=== PATIENT | male | born 1955 | race Caucasian/White ===

== ENCOUNTER 2025-05-14 17:34 | Emergency (ER) | payer MEDICARE, BC, SELFPAY ==
[2025-05-14 17:49] VITALS: BP 162/72; PULSE 79; RESP 18; TEMP 37.6; O2SAT 97
--- NOTE | 2025-05-14 17:59 | ED.URI ---
HPI - URI/Sore Throat General Chief Complaint: Upper Respiratory Infection Stated Complaint: sinus Time Seen by Provider: 05/14/25 18:01 Source: patient and RN notes reviewed Mode of arrival: ambulatory Limitations: no limitations History of Present Illness HPI Narrative: 70-year-old male presents with concern for 3 week history of sinus congestion and pressure. Reports over the last 3 [place] he has had worsening rhinorrhea, sneezing and sinus pressure. He is using hypertropia, Flonase and Zyrtec without relief. Denies fever, body aches, chills, sweats. MD elicited complaint: cough, rhinorrhea and nasal congestion Related Data Home Medications ?Medication ?Instructions ?Recorded ?Confirmed ?Last Taken ?Type rosuvastatin 10 mg tablet mg 05/14/25 Unknown History Allergies Allergy/AdvReac Type Severity Reaction Status Date / Time iodine Allergy Swelling Verified 05/14/25 17:53 Review of Systems Review of Systems: CONSTITUTIONAL: Denies malaise, chills, sweats, or fever. EYES: Denies visual changes, redness, or discharge. ENT: Reports rhinorrhea, congestion, sinus pain, otalgia and sneezing CARDIOVASCULAR: Denies chest pain, palpitations, or edema. RESPIRATORY: Reports cough. Denies dyspnea. GASTROINTESTINAL: Denies abdominal pain, nausea, vomiting, diarrhea SKIN: Denies rash or itching. MUSCULOSKELETAL: Denies myalgia. NEUROLOGIC: Denies headache. All systems reviewed & are unremarkable except as noted in HPI and below PMFSH Comments At time of signature, agree with nursing past medical, surgical, social and family history. There is no relevant family history pertinent to the presenting complaint Exam Narrative: GENERAL: Well-appearing, well-nourished, and in no acute distress. HEAD: Normocephalic EYES: PERRLA, conjunctivae clear ENT: Nares clear, turbinates edematous and erythematous. Mucous membranes moist. TM pearly thomas with dull light reflex bilaterally; no tragal tenderness. Oropharynx not erythematous without lesions. Tonsils not enlarged and without exudate, no drooling, no hoarseness, no trismus, uvula midline. NECK: Supple. No lymphadenopathy CHEST: Clear to auscultation, breath sounds equal. No wheezing, rhonchi, rales, or stridor. No respiratory distress, speaks in full sentences. Cough HEART: Regular rate and rhythm. No murmur heard. SKIN: Warm, dry, no rash. NEURO: Alert and oriented x3. PSYCH: Normal mood and affect Course Course Emergency Course: Patient is aware of diagnosis, understands and agrees to treatment plan. Anticipatory guidance given. Patient agrees to follow-up as directed and is aware of reasons to seek care at the emergency department. Portions of this record may have been created with voice recognition software Level of Care: [facility] Visit Vital Signs Vital signs: Vital Signs Temperature 99.6 F 05/14/25 17:49 Pulse Rate 79 05/14/25 17:49 Respiratory Rate 18 05/14/25 17:49 Blood Pressure 162/72 H 05/14/25 17:49 Pulse Oximetry 97 05/14/25 17:49 Oxygen Delivery Room Air 05/14/25 17:49 Temperature 99.6 F 05/14/25 17:49 Pulse Rate 79 05/14/25 17:49 Respiratory Rate 18 05/14/25 17:49 Blood Pressure 162/72 H 05/14/25 17:49 Pulse Oximetry 97 05/14/25 17:49 Oxygen Delivery Room Air 05/14/25 17:49 MDM Differential Diagnosis Differential Diagnosis: I evaluated this patient in the [facility]. History is obtained from patient who is an independent historian and physical exam was performed.? Available medical records were reviewed. ? Exam findings and relevant testing show no acute concerns or changes; patient is non-toxic appearing and is in no distress. ? Differential diagnosis considered: Rosas virus, strep pharyngitis, allergic rhinitis, upper respiratory tract infection, sinusitis, rhinosinusitis, nasopharyngitis. viral pharyngitis, otitis media, otitis externa, pneumonia, bronchitis, viral cough syndrome, viral syndrome, and influenza. Differential diagnosis and treatment plan were discussed with the patient. Patient agrees with discussion and after shared medical decision making agrees with plan of care. All questions were answered to the patient's satisfaction. Patient is appropriate for outpatient treatment and follow-up. Discharge Plan Discharge Clinical Impression: Sinobronchitis Patient Disposition: Home Condition: Stable Instructions: Antibiotic Form, Sinusitis (ED) Additional Instructions: Take medication as prescribed Recommend antihistamine such as Benadryl at night time (you can also take Benadryl every 6 hours if needed) and Zyrtec or Tosha during the day Continue Use your inhaler as needed for cough, wheezing, shortness of breath or chest tightness. Also, recommend symptomatic treatment includes: rest, fluids, and increase humidity of the air at home. Recommend Acetaminophen as directed on the bottle to reduce fever, pain, headache. Avoid smoking/second-hand smoke. Please schedule a follow-up visit with your personal physician for further evaluation and treatment within 3-5days. Including recheck and discussion of your blood pressure. If your symptoms persist, change or worsen significantly before you can contact your personal physician then please, without delay, go to the emergency department for further evaluation. Patient Language: Sen[place]alese Prescriptions: New azithromycin [Zithromax Z-[id number]] 250 mg tablet See Rx Instructions .ROUTE .COMPLEX Qty: 6 0RF Rx Instructions: take 500 mg today (day 1), then 250 mg for 4 days (days 2-5) prednisone 20 mg tablet 40 mg PO DAILY 5 Days Qty: 10 0RF No Action rosuvastatin 10 mg tablet Follow-up/Referrals: UNKNOWN,DOCTOR [Primary Care Provider] Time of Disposition: 18:10
--- OUTSIDE RECORDS SUMMARY | 2025-05-14 21:13 | XMS_ITS | Data Portability ---
Author Organization [place] - [facility] [employer] [facility] Address [address] [place] [address] Care Team Providers Care Visual Merchandiser Name Role Phone NOAH SILVA Primary Care Provider [phone] NOAH SILVA Referring Provider [phone] ADELE JUAREZ Square Cutter [phone] PRATIMA HUMPHREY Event Promotions Coordinator Assessment Encounter Date Assessment Date Assessment LastModified by Organization Details LastModified Time 05/21/2024 05/21/2024 Time Spent: Alcohol screening 1 minutes, and counseling (if performed): minutes. Depression screening 1 minutes, and counseling (if performed): minutes. Falls: Number of falls in the past year: 0 MCW Other issues as below PLAN The cough just may continue to be postinflammatory after his recent upper respiratory tract infection and with some mild airway irritation from his history of mild/intermittent asthma but I will have a chest x-ray done, coccidiomycosis antibodies are ordered as well. Will contact with results. It has been years since he had PFTs. I am ordering those. 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 Referral has been made. I did not put him on a daily controller at this time. He is happy with this approach Urology referral placed over the weekend. I advised him if he does not hear from them by the end of the day to contact them. He will do so. Information was given once again. Again examination not performed today as he will be seeing urology for formal examination and to spare him multiple rectal examinations Continue on rosuvastatin No need for antihypertensive treatment Advance care planning as below Colonoscopy in another 7 years Continue low-sodium diet. And a low carbohydrate diet as well With regards to vaccines encouraged him to get caught up with Prevnar 20. No need for RSV as of yet but consider depending on what happens with pulmonary evaluation If he needs a refill of ipratropium nasal spray he will let me know. He will return to see me in 1 year, sooner should new issues arise All questions answered form today. Time spent with patient in direct consultation and evaluation apart from the MCW: 20 minutes Time spent reviewing previous records in the EMR/preparing for today's appointment, ordering studies, referrals, and documenting in the EMR apart from the MCW: 25 minutes Total time spent on patient care apart from the MCW: 45 minutes lauren Not available 05/21/2024 09:43:35 Plan of Treatment Reminders Order Date Submit Date Provider Last Modified By Organization Details Last Modified Time Details Appointments *Medic are Annual Zak ss 30 2024 07:15A M Noah moy M.D. Not available Not available Not available *Medhat Lee t 30 2025 03:00P M RANDY PAYAN R, P.A. Not available Not available Not available Lab coccid ioides igg+ig m Ab, serum 2023 024 [place] [facility], [address] [place], [place], [address], 05/22/2024 16:10:35 Referral urolog ist referr al 2023 024 [email or web address] [facility], [address], [place], [address], 06/19/2024 08:40:05 pulmon ologis t referr al 2023 024 rudy [facility], [address], [place], [address], 05/21/2024 16:46:53 Procedures None record ed. Surgeries None record ed. Imaging XR, chest, 2 view 2023 024 [facility], [address], [place], [address], 05/22/2024 04:34:34 PFT, comple te 2023 024 [email or web address] [facility] ([facility]), [address], [place], [address], 06/07/2024 17:08:43 Medication Orders triamc inolon e aceton mode 40 mg/mL suspen christos for inject ion 2024 025 [email or web address] Not available 05/14/2025 10:42:02 ipratr opium bromid e 42 mcg (0.06 %) nasal spray 2024 025 [facility] [address] [place], [address], 08/19/2024 11:57:29 amoxic illin 875 mg-pot assium clavul anate 125 mg tablet 2024 025 [email or web address] [facility] [address] [place], [address], 05/14/2025 10:41:54 omari ukast 10 mg tablet 2023 024 [facility] [address] [place], [address], 05/31/2024 10:56:19 rosuva statin 10 mg tablet 2023 024 [facility] [address] [place], [address], 05/21/2024 09:36:02 albute rol sulfat e HFA 90 mcg/ac tuatio n aeroso l inhale r 2023 024 [facility] [address] [place], [address], 05/21/2024 09:36:02 Patient TargetsNo targets recorded. Patient Instructions Encounter Date Encounter Id Patient Instructions Last Modified By Organization Details Last Modified Time 05/21/2024 [id number] chronic cough: c are instructions [email or web address] Not available 05/21/2024 09:35:53 multi-dimensiona l health assessment questionnaire* [email or web address] Not available 05/21/2024 10:35:50 advance directiv es: care instructions [email or web address] Not available 05/21/2024 09:35:53 advance directiv e education [email or web address] Not available 05/21/2024 09:35:53 hearing loss: ca re instructions [email or web address] Not available 05/21/2024 09:35:53 heart-healthy di et: care instructions [email or web address] Not available 05/21/2024 09:35:53 dash diet: care instructions [email or web address] Not available 05/21/2024 09:35:53 preventing falls : care instructions [email or web address] Not available 05/21/2024 09:35:53 Personalized Hea lth Plan and Screening Recommendations Advance Directives - Do you have one? Yes Advance Directives - Do we have your advance directive on file in your health record? No, please bring in a copy at your earliest convenience Primary Prevention/Interven tion (prevents or decreases the chance of common diseases from occurring) Tobacco/Nicotine Risk: Non-Smoker Alcohol Misuse Screening: Low risk Weight: Overweight try to lose 5% of your body weight Physical activity: Maintain appropriate physical activity Nutrition: Good Fall Risk (screened today): Low risk Vaccines Influenza: Your next one in the fall of next year Pneumococcal: Recommended Shingles: Series completed COVID-19: Series and booster completed Respiratory Syncytial Virus (RSV): Not indicated Tetanus: Not indicated Hepatitis B: Not indicated Secondary Prevention/Interven tion (detects treatable diseases before they may cause symptoms, disability, or ) Prostate Cancer Screening: Your next PSA in: 1 year Osteoporosis Screening: not indicated Colon Cancer Screening: Colonoscopy Due: Per GI 2030 Eye Disease Screening: Per your eye care provider Hearing Screening: No exam necessary Depression Screening: Low risk Cognitive Screening: Normal Stay mentally and physically active Diabetes Screening: Not indicated Cardiovascular Disease (CVD) Screening: labs - Not indicated Aspirin Recommendations: you are not at increased risk Abdominal Aortic Aneurysm (AAA) Screening: Not indicated Lung Cancer Screening: Not indicated Hepatitis/Sexually Transmitted Infection (STI)/Human Immunodeficiency Virus (HIV) Screenings: You are not at increased risk, testing is not indicated today Tertiary Prevention/Interven tion (identifies your current known diseases and attempts to prevent complications of those diseases) Complications of many of these diseases can be minimized through the primary prevention/interven tions listed above but some may require medication addition/change or referrals and will be addressed today or at a follow-up appointment Pain Control Status: no pain or pain under adequate control Pain Medication Use and Risk for Opioid Misuse: You do not use addictive opioid medications, and therefore are not at risk Pain Management Plan: No interventions or changes required, alternative therapies have been assessed and documented in your chart lauren Not available 05/21/2024 09:44:12 05/31/2024 [id number] chronic cough: c are instructions Not available 05/31/2024 10:56:13 08/19/2024 [id number] seasonal allergi es: care instructions Not available 08/19/2024 11:56:54 allergies: care instructions Not available 08/19/2024 11:56:53 09/02/2024 [id number] seasonal allergi es: care instructions Not available 09/02/2024 11:40:18 Reason for Referral Event Promotions Coordinator Referral for M ild intermittent asthma Referring Physician: Noah Silva, Internal Medicine, Encounter Date: 05/21/2024 Urologist Referral for Prost ate specific antigen above reference range Referring Physician: Noah Silva, Internal Medicine, Encounter Date: 05/21/2024 Results Created Date Observation Date Name Description Value Unit Range Abnormal Flag Note LastModifiedBy Organization Detail LastModifiedTime 05/09/20 24 05/10/2024 COMP. METAB OLIC PANEL (14) glucose 85 mg/dL 70-99 normal Not Available [facility] ([facility]) [address] [facility], [place], [address], 05/10/2024 09:13:57 05/09/20 24 05/10/2024 COMP. METAB OLIC PANEL (14) BUN 18 mg/dL 8-27 normal Not Available [facility] ([facility]) [address] [facility], [place], [address], 05/10/2024 09:13:57 05/09/20 24 05/10/2024 COMP. METAB OLIC PANEL (14) creatinine 1.16 mg/dL 0.76-1 .27 normal Not Available [facility] ([facility]) [address] [place] [place], [address], 05/10/2024 09:13:57 05/09/20 24 05/10/2024 COMP. METAB OLIC PANEL (14) eGFR 68 mL/mi n/1.7 3 >59 normal Not Available [facility] ([facility]) [address] [facility], [place], [address], 05/10/2024 09:13:57 05/09/20 24 05/10/2024 COMP. METAB OLIC PANEL (14) BUN/creatini ne ratio 16 10-24 normal Not Available [facility] ([facility]) [address] [facility], [place], [address], 05/10/2024 09:13:57 05/09/20 24 05/10/2024 COMP. METAB OLIC PANEL (14) sodium 142 mmol/ L 134-14 4 normal Not Available [facility] ([facility]) [address] [facility] [place], [address], 05/10/2024 09:13:57 05/09/20 24 05/10/2024 COMP. METAB OLIC PANEL (14) potassium 4.5 mmol/ L 3.5-5. 2 normal Not Available [facility] ([facility]) [address] [facility], [place], [address], 05/10/2024 09:13:57 05/09/20 24 05/10/2024 COMP. METAB OLIC PANEL (14) chloride 106 mmol/ L 96-106 normal Not Available [facility] ([facility]) [address] [place], [address], 05/10/2024 09:13:57 05/09/20 24 05/10/2024 COMP. METAB OLIC PANEL (14) carbon dioxide, total 25 mmol/ L 20-29 normal Not Available [facility] ([facility]) [address] [facility] [place], [address], 05/10/2024 09:13:57 05/09/20 24 05/10/2024 COMP. METAB OLIC PANEL (14) calcium 9.3 mg/dL 8.6-10 .2 normal Not Available [facility] ([facility]) [address] [facility] [place], [address], 05/10/2024 09:13:57 05/09/20 24 05/10/2024 COMP. METAB OLIC PANEL (14) protein, total 6.4 g/dL 6.0-8. 5 normal Not Available [facility] ([facility]) [address] [place], [address], 05/10/2024 09:13:57 05/09/20 24 05/10/2024 COMP. METAB OLIC PANEL (14) albumin 4.2 g/dL 3.9-4. 9 normal Not Available [facility] ([facility]) [address] [place] [place], [address], 05/10/2024 09:13:57 05/09/20 24 05/10/2024 COMP. METAB OLIC PANEL (14) globulin, total 2.2 g/dL 1.5-4. 5 Not Available [facility] ([facility]) [address] [place], [address], 05/10/2024 09:13:57 05/09/20 24 05/10/2024 COMP. METAB OLIC PANEL (14) bilirubin, total 0.6 mg/dL 0.0-1. 2 normal Not Available [facility] ([facility]) [address] [facility] [place], [address], 05/10/2024 09:13:57 05/09/20 24 05/10/2024 COMP. METAB OLIC PANEL (14) alkaline phosphatase 71 IU/L 44-121 normal Not Available [facility]) [address] [facility] [place], [address], 05/10/2024 09:13:57 05/09/20 24 05/10/2024 COMP. METAB OLIC PANEL (14) AST (SGOT) 25 IU/L 0-40 normal Not Available [facility] ([facility]) [address] [facility] [facility], [place], [address], 05/10/2024 09:13:57 05/09/20 24 05/10/2024 COMP. METAB OLIC PANEL (14) ALT (SGPT) 25 IU/L 0-44 normal Not Available [facility] ([facility]) [address] [facility] [place], [address], 05/10/2024 09:13:57 05/09/20 24 05/09/2024 CBC, PLATE LET, NO DIFFE RENTI AL WBC 5.5 x10e3 /uL 3.4-10 .8 normal Not Available [facility] ([facility]) [address] [place], [address], 05/10/2024 09:13:58 05/09/20 24 05/09/2024 CBC, PLATE LET, NO DIFFE RENTI AL RBC 5.45 x10e6 /uL 4.14-5 .80 normal Not Available [facility] ([facility]) [address] [place] [place], [address], 05/10/2024 09:13:58 05/09/20 24 05/09/2024 CBC, PLATE LET, NO DIFFE RENTI AL hemoglobin 15.7 g/dL 13.0-1 7.7 normal Not Available [facility] ([facility]) [address] [facility], [place], [address], 05/10/2024 09:13:58 05/09/20 24 05/09/2024 CBC, PLATE LET, NO DIFFE RENTI AL hematocrit 49.5 % 37.5-5 1.0 normal Not Available [facility] ([facility]) [address] [facility], [place], [address], 05/10/2024 09:13:58 05/09/20 24 05/09/2024 CBC, PLATE LET, NO DIFFE RENTI AL MCV 91 fL 79-97 normal Not Available [facility] ([facility]) [address] [facility], [place], [address], 05/10/2024 09:13:58 05/09/20 24 05/09/2024 CBC, PLATE LET, NO DIFFE RENTI AL MCH 28.8 pg 26.6-3 3.0 normal Not Available [facility] ([facility]) [address] [place], [address], 05/10/2024 09:13:58 05/09/20 24 05/09/2024 CBC, PLATE LET, NO DIFFE RENTI AL MCHC 31.7 g/dL 31.5-3 5.7 normal Not Available [facility] ([facility]) [address] [place], [address], 05/10/2024 09:13:58 05/09/20 24 05/09/2024 CBC, PLATE LET, NO DIFFE RENTI AL RDW 12.7 % 11.6-1 5.4 Not Available [facility] ([facility]) [address] [facility], [place], [address], 05/10/2024 09:13:58 05/09/20 24 05/09/2024 CBC, PLATE LET, NO DIFFE RENTI AL platelets 148 x10e3 /uL 150-45 0 below low normal Not Available [facility] ([facility]) [address] [facility], [place], [address], 05/10/2024 09:13:58 05/09/20 24 05/09/2024 CBC, PLATE LET, NO DIFFE RENTI AL NRBC HAIR SPECIALIST Not Available [facility] ([facility]) [address] [facility], [place], [address], 05/10/2024 09:13:58 05/09/20 24 05/09/2024 LIPID PANEL LDL calc comment: COMMEN T See LDL Comme nt if repor monisha. Not Available [facility] ([facility]) [address] [facility], [place], [address], 05/10/2024 09:13:59 05/09/20 24 05/10/2024 LIPID PANEL cholesterol, total 139 mg/dL 100-19 9 normal Not Available [facility] ([facility]) [address] [facility], [place], [address], 05/10/2024 09:13:59 05/09/20 24 05/10/2024 LIPID PANEL triglyceride s 76 mg/dL 0-149 normal Not Available [facility] ([facility]) [address] [facility], [place], [address], 05/10/2024 09:13:59 05/09/20 24 05/10/2024 LIPID PANEL HDL cholesterol 52 mg/dL >39 normal Not Available [facility] ([facility]) [address] [facility], [place], [address], 05/10/2024 09:13:59 05/09/20 24 05/10/2024 LIPID PANEL VLDL cholesterol marisela 15 mg/dL 5-40 Not Available [facility] ([facility]) [address] [facility] [facility], [place], [address], 05/10/2024 09:13:59 05/09/20 24 05/10/2024 LIPID PANEL LDL chol calc (nih) 72 mg/dL 0-99 Not Available [facility] ([facility]) [address] [place], [address], 05/10/2024 09:13:59 05/09/20 24 05/10/2024 LDL MONTEZ STERO L (DIRE CT) LDL chol. (direct) 67 mg/dL 0-99 Not Available [facility] ([facility]) [address] [place], [address], 05/10/2024 09:14:00 05/09/20 24 05/10/2024 LDL MONTEZ STERO L (DIRE CT) LDL direct comment: HAIR SPECIALIST Not Available [facility] ([facility]) [address] [facility], [place], [address], 05/10/2024 09:14:00 05/09/20 24 05/10/2024 HEMOG LOBIN A1C hemoglobin A1C 5.7 % 4.8-5. 6 above high normal Predi abete s: 5.7 - 6.4 Diabe vasyl: >6.4 Glyce araceli contr ol for adult s with diabe vasyl: <7.0 Not Available [facility] ([facility]) [address] [facility], [place], [address], 05/10/2024 09:14:02 05/09/20 24 05/10/2024 TSH TSH 2.500 uIU/m L 0.450- 4.500 normal Not Available [facility] ([facility]) [address] [place], [address], 05/10/2024 09:14:03 05/09/20 24 05/10/2024 VITAM IN D, 25-HY DROXY vitamin D, 25-hydroxy 57.9 NG/mL 30.0-1 00.0 Vitam in D defic iency has been defin ed by the Insti tute of Medic ine and an Endoc rine Socie ty pract ice guide line as a level of serum 25-OH vitam in D less than 20 ng/mL (1,2) . The Endoc rine Socie ty went on to furth er defin e vitam in D insuf ficie ncy as a level betwe en 21 and 29 ng/mL (2). 1. IOM (Inst itute of Medic ine). 2010. Dieta ry refer ence intak es for calci um and D. Brenden kraft [place]: The [facility] . 2. Yaneth welch MF, Yahir muller [place], Gabriella off-F errar i ARSHAD, et al. Evalu ation , treat ment, and preve ntion of vitam in D defic iency : an Endoc rine Socie ty clini marisela pract ice guide line. JCEM. 2010; 96(7) :1911 -30. Not Available [facility] ([facility]) [address] [facility], [place], [address], 05/10/2024 09:14:04 05/09/20 24 05/10/2024 PROST ATE SPECI FIC AG, SERUM prostate specific Ag 8.1 NG/mL 0.0-4. 0 above high normal Eunice ECLIA metho dolog y. Accor ding to the Ameri can Urolo gical Assoc iatio n, Serum PSA shoul d decre ase and remai n at undet ectab le level s after radic al prost atect skyler. The AUA defin es bioch emica l recur rence as an initi al PSA value 0.2 ng/mL or great er follo wed by a subse quent confi rmato ry PSA value 0.2 ng/mL or great er. Value s obtai brice with diffe rent assay metho ds or kits canno t be used inter reeves eably . Resul ts canno t be inter prete d as absol maria teresa evide nce of the prese nce or absen ce of tacho murdock se. Not Available [facility] ([facility]) [address] [facility], [place], [address], 05/10/2024 09:14:05 05/16/20 24 05/17/2024 PSA TOTAL +% FREE prostate specific Ag 9.2 NG/mL 0.0-4. 0 above high normal Eunice ECLIA metho dolog y. Accor jean carlos to the Ameri can Urolo gical Assoc iatio n, Serum PSA shoul d decre ase and remai n at undet ectab le level s after radic al prost atect skyler. The AUA defin es bioch emica l recur rence as an initi al PSA value 0.2 ng/mL or great er follo wed by a subse quent confi rmato ry PSA value 0.2 ng/mL or great er. Value s obtai brice with diffe rent assay metho ds or kits canno t be used inter reeves eably . Resul ts canno t be inter prete d as absol maria teresa evide nce of the prese nce or absen ce of tacho murdock se. Not Available [facility] ([facility]) [address] [place], [address], 05/17/2024 09:13:35 05/16/20 24 05/17/2024 PSA TOTAL +% FREE PSA, free 2.32 NG/mL n/a Eunice ECLIA metho dolog y. Not Available [facility] ([facility]) [address] [place], [address], 05/17/2024 09:13:35 05/16/20 24 05/17/2024 PSA TOTAL +% FREE % free PSA 25.2 % The table below lists the proba bilit y of prost ate cance r for men with non-s uspic ious ESTEE resul ts and total PSA betwe en 4 and 10 ng/mL , by patie nt age (Stacia torres et al, LIBRA 1998, 279:1 542). % Free PSA 50-64 yr 65-75 yr 0.00- 10.00 % 56% 55% 10.01 -15.0 0% 24% 35% 15.01 -20.0 0% 17% 23% 20.01 -25.0 0% 10% 20% >25.0 0% 5% 9% Pleas e note: Shaheen gaviria did not make speci fic recom menda tions regar jean carlos the use of perce nt free PSA for any other popul ation of men. Not Available [facility] ([facility]) [address] [facility], [place], [address], 05/17/2024 09:13:35 05/21/20 24 05/22/2024 COCCI DIOID ES ABS, IGG/I GM, EIA coccidioides Ab, IgG, EIA 0.2 EIA_u nits Negat lawson <1.0 Indet ermin ate 1.0-1 .4 Posit lawson >1.4 Not Available [facility] ([facility]) [address] [facility], [place], [address], 05/22/2024 16:10:35 05/21/20 24 05/22/2024 COCCI DIOID ES ABS, IGG/I GM, EIA coccidioides Ab, IgM, EIA 0.2 EIA_u nits Negat lawson <1.0 Indet ermin ate 1.0-1 .4 Posit lawson >1.4 Not Available [facility] ([facility]) [address] [facility], [place], [address], 05/22/2024 16:10:35 08/12/19 25 08/11/2024 CBCDA WBC 7.6 x10 4.8-10 .8 Not Available [facility] (Lab) [address], [place], [address], 08/11/2024 20:27:04 08/12/19 25 08/11/2024 CBCDA RBC 5.36 x10 3.80-5 .80 Not Available [facility] (Lab) [address], [place], [address], 08/11/2024 20:27:04 08/12/19 25 08/11/2024 CBCDA HGB 15.5 g/dL 11.7-1 6.1 Not Available [facility] (Lab) [address], [place], [address], 08/11/2024 20:27:04 08/12/19 25 08/11/2024 CBCDA HCT 46.6 % 37.0-5 1.0 Not Available [facility] (Lab) [address], [place], [address], 08/11/2024 20:27:04 08/12/19 25 08/11/2024 CBCDA MCV 87 fL 81-99 Not Available [facility] (Lab) [address], [place], [address], 08/11/2024 20:27:04 08/12/19 25 08/11/2024 CBCDA MCH 28.9 pg 27.0-3 4.0 Not Available [facility] (Lab) [address], [place], [address], 08/11/2024 20:27:04 08/12/19 25 08/11/2024 CBCDA MCHC 33.3 g/dL 31.0-3 6.0 Not Available [facility] (Lab) [address], [place], [address], 08/11/2024 20:27:04 08/12/19 25 08/11/2024 CBCDA RDW 12.8 % 11.5-1 4.5 Not Available [facility] (Lab) [address], [place], [address], 08/11/2024 20:27:04 08/12/19 25 08/11/2024 CBCDA plt cnt 121 x10 140-44 0 low Not Available [facility] (Lab) [address], [place], [address], 08/11/2024 20:27:04 08/12/19 25 08/11/2024 CBCDA MPV 11.7 fL 8.9-12 .8 Not Available [facility] (Lab) [address], [place], [address], 08/11/2024 20:27:04 08/12/19 25 08/11/2024 CBCDA NRBC# auto 0.0 x10 Not Avail able [facility] (Lab) [address] [place], [address], 08/11/2024 20:27:04 08/12/19 25 08/11/2024 CBCDA NRBC% auto 0.0 % 0.0-5. 0 Perfo rmed at: [address] , , [place] [address] Not Available [facility] (Lab) [address] [place] [address], [address], 08/11/2024 20:27:04 08/12/19 25 08/11/2024 .DIFF AUTO neutrophils% auto 86.1 % 50.0-7 0.0 high Not Available [facility] (Lab) [address] [place] [address], [address], 08/11/2024 20:27:05 08/12/19 25 08/11/2024 .DIFF AUTO lymphocytes% auto 6.3 % 20.0-4 0.0 low Not Available [facility] (Lab) [address] [place] [address], [address], 08/11/2024 20:27:05 08/12/19 25 08/11/2024 .DIFF AUTO monocytes% auto 6.4 % 3.5-10 .7 Not Available [facility] (Lab) [address] [place] [address], [address], 08/11/2024 20:27:05 08/12/19 25 08/11/2024 .DIFF AUTO eosinophils% auto 0.5 % 0.0-6. 0 Not Available [facility] (Lab) [address] [place] [address], [address], 08/11/2024 20:27:05 08/12/19 25 08/11/2024 .DIFF AUTO basophils% auto 0.3 % 0.0-2. 0 Not Available [facility] (Lab) [address] [place] [address], [address], 08/11/2024 20:27:05 08/12/19 25 08/11/2024 .DIFF AUTO neutrophils# auto 6.6 x10 1.4-6. 5 high Not Available [facility] (Lab) [address] [place] [address], [address], 08/11/2024 20:27:05 08/12/19 25 08/11/2024 .DIFF AUTO lymphocytes# auto 0.5 x10 1.2-3. 4 low Not Available [facility] (Lab) [address] [place] [address], [address], 08/11/2024 20:27:05 08/12/19 25 08/11/2024 .DIFF AUTO monocytes# auto 0.5 x10 0.2-0. 9 Not Available [facility] (Lab) [address] [place] [address], [address], 08/11/2024 20:27:05 08/12/19 25 08/11/2024 .DIFF AUTO eos# auto 0.0 x10 0.0-1. 5 Not Available [facility] (Lab) [address] [place] [address], [address], 08/11/2024 20:27:05 08/12/19 25 08/11/2024 .DIFF AUTO basophils# auto 0.0 x10 <=0.2 Not Available [facility] (Lab) [address] [place] [address], [address], 08/11/2024 20:27:05 08/12/19 25 08/11/2024 .DIFF AUTO immature granulocytes % auto 0.4 % 0.0-1. 0 Not Available [facility] (Lab) [address] [place] [address], [address], 08/11/2024 20:27:05 08/12/19 25 08/11/2024 .DIFF AUTO immature granulocytes # auto 0.0 x10 0.0-0. 0 Perfo rmed at: [address], , [place] [address] Not Available [facility] (Lab) [address], [place], [address], 08/11/2024 20:27:05 08/12/19 25 08/11/2024 CMP eGFR 42 mL/mi n/1.7 3MA? >=90 low CKD is defin ed by the prese nce of glome rular filtr ation rate (GFR) <60 mL for >3 month s and/o r evide nce of kidne y damag e (eg, struc tural abnor malit ies, histo logic abnor malit ies, album inuri a, urina ry sedim ent abnor malit ies, renal tubul ar disor ders, and/o r histo ry of kidne y trans plant ation ) for >3mon ths. This table provi urszula inter preta tion of speci fic eGFR value s. Creat inine measu remen ts, and there fore eGFR calcu latio ns, are affec monisha by very high or very low muscl e mass, muscl e injur y, a diet very high in meat, hepat ic cirrh osis, certa in drugs , etc. Stage s of CKD: Stage Descr iptio n GFR mL/mi n 1 Kidne y damag e with kalpana l or incre ased GFR 90 2 Kidne y damag e with mild decre ase in GFR 60 to 89 3 Moder ate decre ase in GFR 30 to 59 4 Sever e decre ase in GFR 15 to 29 5 Kidne y failu re <15 (or dialy sis) Note: GFR Kalpana l range >60, equat ion not valid ated for ages <18 and >70 and pregn ant women . Not Available [facility] (Lab) [address], [place], [address], 08/11/2024 20:40:04 08/12/19 25 08/11/2024 CMP glucose 114 mg/dL 70-100 high Not Availabl [facility] (Lab) [address] [place], [address], 08/11/2024 20:40:04 08/12/19 25 08/11/2024 CMP BUN 27 mg/dL 8-25 high Not Available [facility] (Lab) [address] [place] [address], [address], 08/11/2024 20:40:04 08/12/19 25 08/11/2024 CMP creatinine 1.72 mg/dL 0.60-1 .50 high Not Available [facility] (Lab) [address] [place] [address], [address], 08/11/2024 20:40:04 08/12/19 25 08/11/2024 CMP BUN/crea ratio 16 ratio Not Available [facility] (Lab) [address] [place], [address], 08/11/2024 20:40:04 08/12/19 25 08/11/2024 CMP sodium 138 mEq/L 135-14 5 Not Available [facility] (Lab) [address] [place], [address], 08/11/2024 20:40:04 08/12/19 25 08/11/2024 CMP potassium 4.6 mEq/L 3.5-5. 0 Not Available [facility] (Lab) [address] [place], [address], 08/11/2024 20:40:04 08/12/19 25 08/11/2024 CMP chloride 103 mEq/L 98-108 Not Availab le [facility] (Lab) [address] [place] [place], [address], 08/11/2024 20:40:04 08/12/19 25 08/11/2024 CMP carbon dioxide 30 mEq/L 23-30 Not Available [facility] (Lab) [address] , [place], [address], 08/11/2024 20:40:04 08/12/19 25 08/11/2024 CMP calcium 9.2 mg/dL 8.5-10 .5 Not Available [facility] (Lab) [address] [facility], [place], [address], 08/11/2024 20:40:04 08/12/19 25 08/11/2024 CMP Ca corrected 9 mg/dL Not Keisha ilable [facility] (Lab) [address], [place], [address], 08/11/2024 20:40:04 08/12/19 25 08/11/2024 CMP prot total 7.0 g/dL 6.0-8. 0 Not Available [facility] (Lab) [address] [place] [address], [address], 08/11/2024 20:40:04 08/12/19 25 08/11/2024 CMP albumin 4.0 g/dL 3.5-5. 0 Not Available [facility] (Lab) [address] [place] [address], [place], [address], 08/11/2024 20:40:04 08/12/19 25 08/11/2024 CMP globulin 3.0 g/dL 2.3-3. 5 Not Available [facility] (Lab) [address] [place] [address], [address], 08/11/2024 20:40:04 08/12/19 25 08/11/2024 CMP albumin/glob ulin ratio 1.3 ratio Not Available [facility] (Lab) [address], [place], [address], 08/11/2024 20:40:04 08/12/19 25 08/11/2024 CMP anion gap 5 mEq/L Not Availa ble [facility] (Lab) [address], [place], [address], 08/11/2024 20:40:04 08/12/19 25 08/11/2024 CMP alkaline phosphatase 67 unit/ L 40-120 Not Available [facility] (Lab) [address], [place], [address], 08/11/2024 20:40:04 08/12/19 25 08/11/2024 CMP AST 22 unit/ L 10-40 Not Available [facility] (Lab) [address], [place], [address], 08/11/2024 20:40:04 08/12/19 25 08/11/2024 CMP ALT 31 unit/ L 10-57 Not Available [facility] (Lab) [address], [place], [address], 08/11/2024 20:40:04 08/12/19 25 08/11/2024 CMP bili total 0.5 mg/dL 0.1-1. 0 Not Available [facility] (Lab) [address], [place], [address], 08/11/2024 20:40:04 08/12/19 25 08/11/2024 CMP hil 111 111-11 1 Perfo rmed at: [address], , [place] [address] Not Available [facility] (Lab) [address], [place], [address], 08/11/2024 20:40:04 08/12/19 25 08/11/2024 .UAMI CSCM ur WBC 0-2 /hpf none seen Not Available [facility] (Lab) [address], [place], [address], 08/11/2024 20:46:27 08/12/19 25 08/11/2024 .UAMI CSCM ur RBC TNTC /hpf none seen abnormal Not Available [facility] (Lab) [address], [place], [address], 08/11/2024 20:46:27 08/12/19 25 08/11/2024 .UAMI CSCM ur epithelial cells 2-5 /hpf none seen abnormal Not Available [facility] (Lab) [address], [place], [address], 08/11/2024 20:46:27 08/12/19 25 08/11/2024 .UAMI CSCM ur bacteria 2+ /hpf none seen abnormal Perfo rmed at: [address], , [place] [address] Not Available [facility] (Lab) [address], [place], [address], 08/11/2024 20:46:27 08/12/19 25 08/11/2024 UARFX MRFXC ur collection source U Clean Catch Not Available [facility] (Lab) [address], [place], [address], 08/11/2024 20:46:28 08/12/19 25 08/11/2024 UARFX MRFXC ur color Brown Not Available [facility] (Lab) [address], [place], [address], 08/11/2024 20:46:28 08/12/19 25 08/11/2024 UARFX MRFXC ur appearance Turbid clear Not Available [facility] (Lab) [address], [place], [address], 08/11/2024 20:46:28 08/12/19 25 08/11/2024 UARFX MRFXC ur glucose Negati ve negati ve Not Available [facility] (Lab) [address], [place], [address], 08/11/2024 20:46:28 08/12/19 25 08/11/2024 UARFX MRFXC ur bili Negati ve negati ve Not Available [facility] (Lab) [address] , [place], [address], 08/11/2024 20:46:28 08/12/19 25 08/11/2024 UARFX MRFXC ur ketone TRACE Not Available [facility] (Lab) [address] , [place], [address], 08/11/2024 20:46:28 08/12/19 25 08/11/2024 UARFX MRFXC ur specific gravity >=1.03 0 1.001- 1.035 Not Available [facility] (Lab) [address] , [place], [address], 08/11/2024 20:46:28 08/12/19 25 08/11/2024 UARFX MRFXC ur blood 3+ negati ve abnormal Not Available [facility] (Lab) [address] , [place], [address], 08/11/2024 20:46:28 08/12/19 25 08/11/2024 UARFX MRFXC ur pH 5.5 5.0-8. 0 Not Available [facility] (Lab) [address] , [place], [address], 08/11/2024 20:46:28 08/12/19 25 08/11/2024 UARFX MRFXC ur protein 2+ negati ve abnormal Not Available [facility] (Lab) [address] , [place], [address], 08/11/2024 20:46:28 08/12/19 25 08/11/2024 UARFX MRFXC ur urobilinogen 0.2 umol/ L >0.2 Not Available [facility] (Lab) [address] , [place], [address], 08/11/2024 20:46:28 08/12/19 25 08/11/2024 UARFX MRFXC ur nitrite Negati ve negati ve Not Available [facility] (Lab) [address], [place], [address], 08/11/2024 20:46:28 08/12/19 25 08/11/2024 UARFX MRFXC ur leukocyte esterase Negati ve negati ve Not Available [facility] (Lab) [address], [place], [address], 08/11/2024 20:46:28 08/12/19 25 08/11/2024 UARFX MRFXC dipstick type? Auto Not Available [facility] (Lab) [address], [place], [address], 08/11/2024 20:46:28 08/12/19 25 08/11/2024 UARFX MRFXC reflex microscopic type? Manual Not Available [facility] (Lab) [address], [place], [address], 08/11/2024 20:46:28 08/12/19 25 08/11/2024 UARFX MRFXC reflex urine culture? Yes Perfo rmed at: [address], , [place] [address] Not Available [facility] (Lab) [address], [place], [address], 08/11/2024 20:46:28 05/22/20 24 05/21/2024 [facility] Jesus EDMONDSON CHANELLE BOB 6 t: : [birth year] 55 Sex Male : Locati o AZN RAD n: TAMI Crystal MD Physic brenda: Access ion Exam Date/T sean Billy vaughn Physic brenda Rhodes AGE AT EXAM [id number] 2023 09:42 M[facility] [place] TAMI Abraham Garcia 69 years Reason for Exam chroni c cough Report DISCUS CHRISTOS: HISTOR Y: chroni c cough; CHRONI C COUGH PROCED URE: XR CHEST 2 VIEWS COMPAR BERNABE: None FINDIN GS: Lung betancourt : Lungs are essent ially clear withou t eviden ce of consol idatio ns or pleura l effusi ons. Heart, medias tinum and great vessel s: Heart is not enlarg ed. Calcif icatio ns are seen in the aortic arch. Bones and soft tissue s: Nonacu te in appear ance. Degene rative change s noted. Suppor t Device (s): None seen IMPRES CHRISTOS: 1. No acute cardio pulmon jay pathol ogy identi fied. 2. Other findin gs as stated above. Electr onical ly signed by: Alexia Lui 2023 02:32 AM [facility] RP Workst ation: [id number] Final Dictat ed by: ALEXIA TREJO DO Dictat ed DT/TM: 2023 02:32 am [facility] Signed by: ALEXIA TREJO DO Signed (Elect niall Signat ure): 2023 02:32 am [facility] [id number] [facility] ology Department [address], [place], [address], 05/22/2024 09:06:05 06/26/19 25 05/27/2024 PFT, compl ete No observ ation record ed. [facility] (Central Scheduling) [address], [place], [address], 06/26/2024 15:26:50 06/26/19 25 05/27/2024 PFT, compl ete No observ ation record ed. [facility] (Central Scheduling) [address], [place], [address], 06/26/2024 15:26:50 07/24/19 25 07/22/2024 MRI, prost ate, w/o contr ast No observ ation record ed. [id number] [address] [facility], [place], [address], 07/24/2024 14:54:04 08/12/19 25 08/11/2024 CT, abdom en + pelvi s, w/o contr ast [facility] Patien CHANELLE NAILS Y Diana 6 t: : [birth year] 55 Sex Male : Locati o AZO ED n: OrderBISI Cotton MD Physic brenda: Access ion Exam Date/T sean Orderi johana Physic brenda PATIEN T AGE AT EXAM [id number] 08/12/19 16:57 MST BISI CABAN MD 69 years Reason for Exam left flank pain;O ther (Pleas e Specif y) Report EXAM DESCRI PTION: CT ABDOME N PELVIS WITHOU T IV CONTRA ST CLINIC AL HISTOR Y: 69 years Male, blood in urine, back pain. Left flank pain. COMPAR BERNABE: None TECHNI QUE: 2.5 mm contig uous axial images are of abdome n and pelvis with no contra st admini strati on. CT scan done accord ing to ALARA (As Low As Reason ably Achiev able). CT of abdome n and pelvis : LOWER CHEST: Visual ized portio n of the lower chest demons trates no acute abnorm ality. KIDNEY S AND URINAR Y TRACT: No renal calcul i are identi fied. Modera te left hydron ephros is with 3 mm obstru cting stone at the level of left ureter opelvi c juncti on. There is also mild left perine phric strand ing. No hydrou reter. ORGANS : Visual ized portio ns of the liver, spleen , pancre as, gallbl adder, and adrena l glands demons trate no acute abnorm ality. GI/BOW EL: No bowel obstru ction. No eviden ce of acute append icitis . Divert iculos is with no eviden ce of divert iculit is. PELVIS : Modera te enlarg ement of prosta te gland. The bladde r and pelvic organs are unrema rkable . PERITO NEUM/R ETROPE RITONE UM: No free air or free fluid is noted. No pathol ogical ly enlarg ed lympha denopa thy. The vascul ature do not demons trate acute abnorm ality. Fat-co ntaini ng umbili marisela hernia contai arleen bowel loops. No eviden ce of [facility] eratio n. BONES/ SOFT TISSUE S: [The osseou s struct ures demons trate no acute abnorm ality. ] Mild ileal disc and facet degene rative change s at L4-L5 and L1-L2. IMPRES CHRISTOS: 1. Modera te left hydron ephros is with 3 mm obstru cting stone at the level of left ureter opelvi c juncti on. 2. Fat-co ntaini ng umbili marisela hernia contai arleen bowel loops. No eviden ce of [facility] eratio n. 3. Modera te prosta tic enlarg ement. [facility] Latiamichael DEBO PATELCHANELLE VALLADARES 6 t: : [birth year] 55 Sex Male : Locati o AZO ED n: Orderi BISI Watt MD Physic brenda: Report Electr onical ly signed by: Bruno Lewis MD 2024 07:21 PM [facility] RP Workst ation: [id number] Final Dictat ed by: BRUNO LEWIS MD Dictat ed DT/TM: 2024 07:21 pm MST Signed by: BRUNO LEWIS MD Signed (Elect niall Signat ure): 2024 07:21 pm [facility] ology Department [address], [place], [address], 08/11/2024 23:29:12 Result Notes Documentation Provider Name and Address Organization Details Recorded Time Xr, Chest, 2 View : [facility] Jesus ORDOÑEZGREG t: : 1955 Sex Male : Joséatio AZN RAD n: Ordering NOAH SILVA MD Physician: Accession Exam Date/Time Ordering Physician PATIENT AGE AT EXAM [id number] 05/21/2024 09:42 NOAH TOLEDO 69 years Reason for Exam chronic cough Report DISCUSSION: HISTORY: chronic cough; CHRONIC COUGH PROCEDURE: XR CHEST 2 VIEWS COMPARISON: None FINDINGS: Lung betancourt: Lungs are essentially clear without evidence of consolidations or pleural effusions. Heart, mediastinum and great vessels: Heart is not enlarged. Calcifications are seen in the aortic arch. Bones and soft tissues: Nonacute in appearance. Degenerative changes noted. Support Device(s): None seen IMPRESSION: 1. No acute cardiopulmonary pathology identified. 2. Other findings as stated above. Electronically signed by: Doug Hernandez DO 05/22/2024 02:32 AM [facility] Final Dictated by: DOUG HERNANDEZ DO Dictated DT/TM: 05/22/2024 02:32 am [facility] Signed by: DOUG HERNANDEZ DO Signed (Electronic Signature): 05/22/2024 02:32 am RITA [place], [place] [facility] 05/22/2024 09:06:05 Ct, Abdomen + Pelvis, W/o Contrast : [facility] GREG Bauer t: : 1955 Sex Male : Carlos AZO ED n: Ordering BISI CABAN MD Physician: Accession Exam Date/Time Ordering Physician PATIENT AGE AT EXAM [id number] 08/11/2024 16:57 BISI BHATIA MD 69 years Reason for Exam left flank pain;Other (Please Specify) Report EXAM DESCRIPTION: CT ABDOMEN PELVIS WITHOUT IV CONTRAST CLINICAL HISTORY: 69 years Male, blood in urine, back pain. Left flank pain. COMPARISON: None TECHNIQUE: 2.5 mm contiguous axial images are of abdomen and pelvis with no contrast administration. CT scan done according to ALARA (As Low As Reasonably Achievable). CT of abdomen and pelvis: LOWER CHEST: Visualized portion of the lower chest demonstrates no acute abnormality. KIDNEYS AND URINARY TRACT: No renal calculi are identified. Moderate left hydronephrosis with 3 mm obstructing stone at the level of left ureteropelvic junction. There is also mild left perinephric stranding. No hydroureter. ORGANS: Visualized portions of the liver, spleen, pancreas, gallbladder, and adrenal glands demonstrate no acute abnormality. GI/BOWEL: No bowel obstruction. No evidence of acute appendicitis. Diverticulosis with no evidence of diverticulitis. PELVIS: Moderate enlargement of prostate gland. The bladder and pelvic organs are unremarkable. PERITONEUM/RETROPERITONEU M: No free air or free fluid is noted. No pathologically enlarged lymphadenopathy. The vasculature do not demonstrate acute abnormality. Fat-containing umbilical hernia containing bowel loops. No evidence of incarceration. BONES/SOFT TISSUES: [The osseous structures demonstrate no acute abnormality.] Mild ileal disc and facet degenerative changes at L4-L5 and L1-L2. IMPRESSION: 1. Moderate left hydronephrosis with 3 mm obstructing stone at the level of left ureteropelvic junction. 2. Fat-containing umbilical hernia containing bowel loops. No evidence of incarceration. 3. Moderate prostatic enlargement. [facility] GREG Bauer t: : 1955 Sex Male : Locatio AZO ED n: Ordering BISI CABAN MD Physician: Report Electronically signed by: Bruno Lewis MD 08/11/2024 07:21 PM [facility] Final Dictated by: BRUNO LEWIS MD Dictated DT/TM: 08/11/2024 07:21 pm [facility] Signed by: BRUNO LEWIS MD Signed (Electronic Signature): 08/11/2024 07:21 pm [facility] Noah Silva MD [address], [place], [address], [place] [facility] 08/11/2024 23:29:12 Problems Name Problem SNOMED Code Status Onset Date Resolution Date Notes Provider Name and Address Organization Details Recorded Time Hyperlipidemi a 48601689 Active 2023 Noah harley MD [address], [place], [address] , [facility] 4 10:32:05 Allergic rhinitis 37518118 Active 2023 Noah harley MD [address], [place], [address] , [facility] 4 10:32:07 Overweight 613528422 Active 2023 Noah harley MD [address], [place], [address] , [facility] 4 10:32:09 Mild intermittent asthma 123682462 Active 2023 Noah harley MD [address], [place], [address] , [facility] 4 10:32:26 Bilateral hearing loss 46827643 Active 2023 Noah harley MD [address], [place], [address] , [facility] 4 10:38:50 Vitamin D deficiency 42582242 Active 2023 Noah harley MD [address], [place], [address] , [facility] 4 10:38:51 Pain in throat 161239236 Active 2023 HANNAH ROSS NP [address], [place], [address] , [facility] 4 13:54:24 Acute sinusitis 43354564 Active 2023 HANNAH ROSS NP [address], [place], [address] , [facility] 4 13:56:17 Chronic cough 71029074 Active 2023 Pratima Humphrey MD [address], [place], [address] , [facility], [facility] 4 10:55:44 Allergic rhinitis caused by pollen 37665049 Active 2024 Pratima Humphrey MD [address], [place], [address] , [facility], [facility] 5 11:39:55 Problem Notes None recorded. Procedures Surgical History Date Name Laterality Status Provider Name and Address Organization Details Recorded Time 05/22/20 25 Medicare Wellness CPT Code, Subsequent active Noah Silva MD [address], [place], [address], [facility], [facility] 05/14/2025 17:09:10 07/25/19 25 Removal of foreign body in ear canal completed Rachel Moeller NP [address], [place], [address], [facility], [facility] 07/25/2024 21:15:31 05/21/20 24 Medicare Wellness CPT Code, Subsequent completed Noah Silva MD [address], [place], [address], [facility], [facility] 05/13/2024 09:32:38 04/04/20 24 colonoscopy completed BISI MCCORMICK MA [facility], [facility] 04/15/2024 15:15:06 06/05/18 88 vasectomy completed Inga Christopher MA [facility], [facility] 02/27/2024 10:12:34 Imaging Results None recorded. Procedure Notes None recorded. Medical Equipment None Reported. Allergies No known drug allergies Medications Name Sig Start Date Stop Date Status Note LastModified by Organization Details LastModified Time aspirin 81 mg tablet,flo yed release Take 1 tablet every day by oral route. 06/05 completed Not Available Not Available Not Available tamsulosin 0.4 mg capsule TAKE 1 CAPSULE BY MOUTH EVERY DAY AT BEDTIME active Not Available Not Available No t Available triamcinolo ne acetonide 40 mg/mL suspension for injection Take 1 mg by injection route. 05/14 completed Not Available Not Available Not Available montelukast 10 mg tablet TAKE 1 TABLET BY MOUTH ONCE DAILY IN THE EVENING active Not Available Not Available No t Available albuterol sulfate HFA 90 mcg/actuati on aerosol inhaler Inhale 2 puffs as needed by inhalatio n route. active Not Available Not Available No t Available ipratropium bromide 42 mcg (0.06 %) nasal spray [facility] 2 sprays 3 times a day by intranasa l route, for nasal congestio n. 2024 active Not Available Not Available Not Avai lable loratadine 10 mg tablet 02/26 completed Not Available Not Available Not Available amoxicillin 875 mg-potassiu m clavulanate 125 mg tablet Take 1 tablet every 12 hours by oral route for 10 days. 05/14 completed Not Available Not Available Not Available Asprin Ec Low Dose 81 mg tablet,flo yed release 02/26 completed Not Available Not Available Not Available rosuvastati n 10 mg tablet Take 1 tablet every day by oral route. active Not Available Not Available No t Available Multivitami n 50 Plus tablet 02/26 completed Not Available Not Available Not Available Zofran 4 mg. 08/11 completed Not Available Not Available Not Available Vitamin D3 daily 4000IU 02/26 completed Not Available Not Available Not Available Vitamin D3 125 mcg (5,000 unit) tablet 05/14 completed Not Available Not Available Not Available Vitamin D3 50 mcg (2,000 unit) capsule Take 2 units every day by oral route. 04/18 completed Not Available Not Available Not Available Sutab 1.479-0.188 -0.225 gram tablet Take 1 dose pk by oral route as directed. 04/18 completed Not Available Not Available Not Available Vitals Date Recorded Body height Body mass index (BMI) Body weight Body temperature Oxygen saturation Heart rate Respiratory rate Systolic And Diastolic Provider Name and Address Organization Details Last Updated DateTime 5 172.72 cm 29.6 kg/m2 27867.5 1 g 98.7 [degF] 95 % 62 /min 16 /min 123/78 mm[Hg] Opal Anup [facility], [facility] 5 12:05:59 Date Recorded Body height Body temperature Heart rate Respiratory rate Oxygen saturation Systolic And Diastolic Provider Name and Address Organization Details Last Updated DateTime 5 172.72 cm 97.6 [degF] 67 /min 16 /min 95 % 145/77 mm[Hg] Oliver SolomonjeraTERESA [facility], [facility] 5 11:36:38 Date Recorded Body height Body mass index (BMI) Body weight Heart rate Oxygen saturation Systolic And Diastolic Provider Name and Address Organization Details Last Updated DateTime 5 172.72 cm 29.6 kg/m2 03376.5 1 g 66 /min 96 % 125/77 mm[Hg] Guillermina Hair MA [facility], [facility] 5 11:16:59 Date Recorded Body height Body mass index (BMI) Body weight Respiratory rate Oxygen saturation Body temperature Heart rate Systolic And Diastolic Provider Name and Address Organization Details Last Updated DateTime 4 172.72 cm 29.2 kg/m2 99715.7 4 g 18 /min 96 % 97 [degF] 65 /min 118/72 mm[Hg] Inga Christopher MA [facility], [facility] 4 09:40:41 Date Recorded Body height Body mass index (BMI) Body weight Heart rate Oxygen saturation Systolic And Diastolic Provider Name and Address Organization Details Last Updated DateTime 4 172.72 cm 30.1 kg/m2 11934.2 9 g 64 /min 97 % 126/70 mm[Hg] Guillermina Hair MA [facility], [facility] 4 10:07:44 Social History Question Answer Notes LastModified by Organizat ion Details LastModified Time Tobacco Smoking Status Never Smoker RITA Sprague [facility], [facility] 02/27/2024 10:13:07 Do You Have An Advance Directive? No [email or web address] Information not available 03/07/2024 Are You Blind Or Do You Have Difficulty Seeing? No [email or web address] Information not available 02/27/2024 What Is Your Level Of Caffeine Consumption? Moderate [email or web address] Information not available 02/27/2024 Are You Deaf Or Do You Have Serious Difficulty Hearing? No [email or web address] Information not available 02/27/2024 What Type Of Diet Are You Following? REGULAR [email or web address] Information not available 02/27/2024 Has The Patient Ever Had A Blood Transfusion? No [email or web address] Information not available 03/07/2024 Is Patient Willing To Receive Blood Transfusion If Necessary? Yes [email or web address] Information not available 03/07/2024 Had Prior Anesthesia? Yes Information not available 03/07/2024 Previous Reaction(s) To Anesthesia? No Information not available 03/07/2024 Do You Have A Medical Power Of Founder President And Ceo? No [email or web address] Information not available 03/07/2024 What Was The Date Of Your Most Recent Tobacco Screening? 09/02/2024 [email or web address] Information not available 08/26/2024 Do You Use Protection During Sex? No Information not available 02/27/2024 What Is Your Relationship Status? [email or web address] Information not available 02/27/2024 Are You Sexually Active? Yes [email or web address] Information not available 02/27/2024 Has Tobacco Cessation Counseling Been Provided? No [email or web address] Information not available 02/27/2024 Do You Have Difficulty Walking Or Climbing Stairs? No [email or web address] Information not available 02/27/2024 Sex: Male Functional Status Question Answer Note LastModified by Organizat ion Details LastModified Time How many times per week do you consume alcohol? 1-2 times per week [email or web address] Information not available 02/27/2024 Do you use any illicit or recreational drugs? No [email or web address] Information not available 02/27/2024 Do you or have you ever used any other forms of tobacco or nicotine? No [email or web address] Information not available 02/27/2024 What is your level of alcohol consumption? Occasional Information not available 02/27/2024 Do you have difficulty doing errands alone? No [email or web address] Information not available 02/27/2024 Are you able to care for yourself independently? Yes [email or web address] Information not available 02/27/2024 Do you have difficulty dressing, bathing, grooming, or toileting? No [email or web address] Information not available 02/27/2024 What is your exercise level? Occasional [email or web address] Information not available 02/27/2024 Mental Status Question Answer Note LastModified by Organization D etails LastModified Time Do you have difficulty concentrating, remembering or making decisions? No [email or web address] Information no t available 02/27/2024 Family History Nothing Reported. Medical History Condition Response ARTHRITIS Y HYPERTENSION Y ASTHMA Y GOUT Y Immunizations Vaccine Type Date Status Note Provider Nam e and Address Organization Details Recorded Time SARS-COV-2 (COVID-19) vaccine, UNSPECIFIED 1 [facility] 02/27/2024 10:10:48 influenza, unspecified formulation 3 [facility] 02/27/2024 10:11:01 tetanus toxoid[facility] unspecified formulation [facility] 10:11:20 zoster, unspecified formulation 1 [facility] 02/27/2024 10:11:33 COVID-19, mRNA, LNP-S, PF, al-sucrose, 30 mcg/0.3 mL 4 completed ADELE JUAREZ, LUIS [address] [address], [place], [address], [facility], [facility] 03/07/2024 13:42:54 Influenza, adjuvanted, trivalent, PF 4 completed Sara Aguilar MA [place], [place] - [facility], [facility] 04/18/2024 13:34:41 Past Encounters Encounter ID Performer Location Encounter Start Date Encounter Closed Date Diagnosis/Indication Diagnosis SNOMED-CT Code Diagnosis ICD10 Code Diagnosis IMO Codes Diagnosis Note [id number] MD Kimber Wheatley [address] [place] [address] 02/27/2024 09:58:21 02/27/2024 11:37:17 Hyperlipidemia 02319905 E78.5 Allergic rhinitis 076131 04 J30.9 Screening for malignant neoplasm of prostate 108950121 Z12.5 Overweight 402731327 E66 .3 Screening for malignant neoplasm of colon 600644271 Z12.11 Screening for malignant neoplasm of skin 564820658 Z12.83 Mild inter mittent asthma 799109124 J45.20 Vitamin D deficiency 347 01693 E55.9 Bilateral hearing loss 97088389 H91.93 Skin lesion 22253044 L98 .9 [id number] ADELE JUAREZ NP [facility] [address] [place] [address] 03/07/2024 13:00:26 03/07/2024 13:56:34 Screening for malignant neoplasm of colon 180794185 Z12.11 [id number] HANNAH ROSS NP [id number] [place] [address] 04/18/2024 13:16:19 04/18/2024 14:13:20 Pain in throat 789713335 R07.0 Acute sinusitis 55201665 J01.90 [id number] MD Kimber Wheatley [address] [place] [address] 05/21/2024 09:16:25 05/21/2024 12:08:36 Adult health examination 736943272 Z00.00 Screening for disorder 488125848 Z13.89 Depression screening 171 998374 Z13.31 Hyperlipidemia 91668993 E78.5 Allergic rhinitis 461571 04 J30.9 Screening for malignant neoplasm of prostate 224607882 Z12.5 Overweight 383179010 E66 .3 Skin lesion 52715573 L98 .9 Screening for malignant neoplasm of skin 653018295 Z12.83 Mild inter mittent asthma 677659250 J45.20 Vitamin D deficiency 347 38312 E55.9 Bilateral hearing loss 94987041 H91.93 Tubular ad enomatous polyp of colon 955814922 D12.6 Advance care planning 71 7236964 Z71.89 The importance and value of an advanced directive was performed spending 17 minutes including the identifica tion of a healthcare agent, the patient's individual believes, and the components which can include other components such as CPR, mechanical ventilatio n, artificial nutrition and other life-susta ining and heroic measures. He is going to be updating the 1 that he had completed in [place], [place] in the coming months with a local criminal defense attorney. Once completed I advised him to have a copy sent to our office which he plans on doing. Prostate s pecific antigen above reference range 502881052 R97.20 Chronic cough 66949581 R 05.3 [id number] Pratima Humphrey MD [facility] [facility] [place] [address] 05/31/2024 09:53:28 05/31/2024 10:34:48 Mild intermittent asthma 641691624 J45.20 I reviewed his pulmonary function test which was done at [facility] and that did not show any obstructio n or bronchodil ator response. I am going to have patient start montelukas t 10 mg nightly. I did explain to patient the risks and benefits. Explained potential side effects including black box warning. I will hold off on starting any inhaled steroid for now. Patient to continue using albuterol as needed. I reviewed the chest x-ray which was unremarkab le. Chronic cough 33075667 R 05.3 This seems to be related to postnasal drip and allergic rhinitis. For now, I will have him continue fluticason e nasal spray in addition to Claritin. May add azelastine nasal spray depending on how he does with adding montelukas t. I will see him after 3 to 4 months. [id number] LUIS HERZOG[facility] [address] [facility] [address] [place] [address] 07/25/2024 11:50:02 07/25/2024 13:06:26 Foreign body in right ear 2663875450 0274824 T16.1XXA Successful ly removed the piece of the hearing aid from his right ear canal with no trauma. [id number] MD Ирина BLACK [facility] [address] [facility] [address] [place] [address] 08/19/2024 11:24:53 08/19/2024 11:59:15 Recurrent acute maxillary sinusitis 5602175414 3719946 J01.01 0268272 Allergic rhinitis 420252 04 J30.9 5246980 Patient tolerated triamcinol one injection well in the urgent care, was discharged in stable condition. [id number] Pratima Humphrey MD [facility] [facility] [place] [address] 09/02/2024 11:10:28 09/02/2024 11:41:54 Mild intermittent asthma 311529775 J45.20 I reviewed his pulmonary function test which was done at [facility] and that did not show any obstructio n or bronchodil ator response.I will have him continue montelukas t since he is doing well clinically and not having any side effectsI will hold off on starting any inhaled steroid for now.Patien t to continue using albuterol as needed.I reviewed the previous chest x-ray which was unremarkab le. Allergic r hinitis caused by pollen 08485619 J30.1 44907814 I believe his rhinitis is mostly allergic, seems to be doing well with montelukas t. Can add Tosha if needed. Health Concerns Section Related Observation LastModified by Organization Detai ls LastModified Time None Recorded Concern Status LastModified by Organization Details LastModified Time None Recorded Advance Directives Directive N: Payers Insurance Date Sequence Insurance Name Policy Number Policy Cooper Covered Member ID Cooper Member ID Guarantor Name 04/21/2025 2 [place] Greg Ordoñez [id number] Greg Ordoñez 04/21/2025 1 [place] Greg Ordoñez [id number] 1 Greg Ordoñez Notes Date Note Type Note Provider Name and Address Organization Details Recorded Time 05/21/20 24 text/htm l ROS as noted in the HPI MCW performed today. Please see completed documentation in the EMR. Chief complaint:Willard is a 69-year-old male who presents today for follow-up of his multiple medical issues. Not too long ago and up at one of our urgent cares because of a cough. Postnasal drip. Diagnosed with sinusitis. He was placed on Augmentin, ipratropium bromide. This of course flared some asthma issues. However he has been using albuterol almost daily ever since. Still having cough. Feeling a bit of congestion in the lungs. Clear sputum production. No other fevers or chills. No hemoptysis. No pleuritic chest pain. Bit frustrating. had similar but she is doing much better. No chest x-ray was done. No evaluation for valley fever was done. He has had no other night sweats or weight loss. He has been checking his blood pressures at home. He brings in those results which show good results. Anywhere from 110 up to 130 systolic. He continues on rosuvastatin without muscle pain. He had his blood work done and he is aware that his PSA was elevated. Initially 8.1. Repeat was 9.2. Urology referral has been made. That was done over the weekend. He is waiting to hear from them. He just had his colonoscopy done this summer. Tubular adenoma noted. Next colonoscopy due in 2030. He presents for evaluation. ALLERGIESNKDA MEDICATIONSRosuvastatin 10 mg nightly Ipratropium bromide nasal spray 0.06%Vitamin D3 2000 IUs, 2 dailyClaritin 10 mg as neededMultivitaminAlbuterol as needed PMHxHyperlipidemiaAllergic rhinitisMild/intermittent asthmaVitamin D deficiencyTubular adenoma on colonoscopy 2023 Elevated PSA PSHxVasectomy SOCIAL HxNo tobacco use. Occasional alcohol use, maybe 3-4 times per month now. No other drug use. 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 Happily for 44 years with 2 children, 1 who lives in [place], another lives in [place]. Had lived in [facility] prior to moving to [place], [place] where he lived for 9 years. FAMILY HxMother from heart disease at age 64 but she was a heavy smoker. Father at age 83 from heart failure. He has older brother with vein issues he believes HCMCovid vax yearly. Including 2023Tdap 2019Flu yearly including 2023Shingrix completedPneumonia Vax/Prevnar 20 has not been obtained yet. Previously recommended.Colonoscopy completed in 2023: Due next 2030 Noah Silva MD [address], [place], [address], [facility] [employer] [facility], [facility] 05/21/2024 09:44:56 05/31/20 24 text/htm l ROS as noted in the [facility] Evaluation for mild intermittent asthma, chronic cough. Patient is a 69-year-old male, had previous history of asthma. Used albuterol on intermittent basis. Noticed more frequent use of albuterol since he moved to [place].He recently got sick and had to use albuterol multiple times during the day. He did not notice active wheezing. He uses the Flonase daily. Has a frequent postnasal drip and coughing. Pratima Humphrey MD [address], [place], [address], [facility], [facility] 05/31/2024 10:56:41 07/25/19 25 text/htm l ROS as noted in the HPI Patient accidentally left part of his hearing aid in his right ear canal. No dizziness, headache, vision changes, sinus congestion, fever or chills or rash. Rachel Moeller, LUIS [address], [place], [address], [facility] [employer] [facility], [facility] 07/25/2024 21:16:06 08/20/19 25 text/htm l ROS as noted in the HPI Willard is a 69-year-old male presenting for evaluation of sinus pain pressure congestion, feeling achy, cough. Patient reports that he has been suffering from allergies over the past couple months, feels like things have really worsened. He takes daily Zyrtec every night, uses Flonase twice daily, perform sinus rinses 3 times a day and has not had any relief, his symptoms have worsened in the last week. He denies chest pain or shortness of breath. Maria De Jesus Navarrete MD [address], [place], [address], [facility], [facility] 08/19/2024 12:23:06 09/03/19 25 text/htm l ROS as noted in the HPI Follow-up chronic cough, allergic rhinitis. Has been doing a lot better since we started montelukast. Using ipratropium bromide nasal spray. Recently took amoxicillin for sinus infection Pratima Humphrey MD [address] [facility] [address], [place], [address], [facility], [facility] 09/02/2024 11:41:13
== END 2025-05-14 18:13 | disposition home or self-care (01) ==
PROVIDERS: Emergency Provider Nurse Practitioner
DX: J32.9 Chronic sinusitis, unspecified (principal); J40 Bronchitis, not specified as acute or chronic
CPT/HCPCS: 99203; G0463